=== PATIENT | male | born 1935 | race Caucasian/White ===

== ENCOUNTER 2017-02-18 15:09 | Inpatient (IN) | payer OTHER, BC ==
[~2017-02-18] VITALS: Ht 167.6 cm; Wt 76.9 kg
[~2017-02-18 15:09] MED LIST: ASCORBIC ACID500 M3 PO; ATENOLOL50 MG PO; ATORVASTATIN CA80 MG PO; BENICAR20 MG PO; CALCIUM 500 MG1 EACH PO; CARVEDILOL3.125 MG PO; CYANOCOBALAM1000 MCG PO; DIGOXIN125 MCG PO; FISH OIL 1,2001 EAC4 PO; FUROSEMIDE40 MG PO; JANUVIA100 MG PO; JANUVIA25 M1 PO; LITE COAT ASPI325 M1 PO; PERCOCET 5/31 TABLET PO; VITAMIN C; VITAMIN D31000 UNI2 PO; ZOFRAN4 MG PO
[2017-02-18 15:30] LABS: HEMATOCRIT 35.6 % (38.0-50.0); HEMOGLOBIN 12.1 G/DL (12.5-16.6); MCH 31.3 PG (29.0-34.0); PLATELET COUNT 305 K/uL (156-360); RBC DIS.WIDTH-CV 13.2 % (11.8-14.6); RBC DIS.WIDTH-SD 44.1 % (39-53); RED BLOOD COUNT 3.87 M/uL (4.00-5.50); WHITE BLOOD COUNT 23.1 K/uL (4.1-10.2)
[2017-02-18 15:39] LABS: CHLORIDE 102 mEq/L (99-109); POTASSIUM 5.3 mEq/L (3.7-5.4); SODIUM 136 mEq/L (136-147)
[2017-02-18 15:40] LABS: GLUCOSE 202 mg/dL (70-99)
[2017-02-18 15:44] LABS: GFR ESTIMATE (CALCULATED) 15 mL/min/ (58.99-99999)
[2017-02-18 15:45] LABS: UREA NITROGEN (BUN) 55 mg/dL (9-23)
[2017-02-18 15:50] LABS: TROP-I INTERPRETATION INDETERMINATE; TROPONIN-I 0.58 ng/mL (0.0-0.30)
[2017-02-18 16:50] LABS: INTER. NORMALIZED RATIO 1.1
[2017-02-18 16:53] LABS: PTT 25.6 SEC (25-37)
[2017-02-18] MEDS ORDERED: TRADJENTA5 MG PO (17:31)
[2017-02-18] MEDS ORDERED: MAGNESIUM OXID500 MG PO (17:32)
[2017-02-18] MEDS ORDERED: FENOFIBRATE160 M1 PO (17:32)
[2017-02-18] MEDS ORDERED: DIGOXIN125 MCG PO (17:32)
[2017-02-18 18:07] LABS: BASOPHIL (%) 0.2 % (0-1); EOSINOPHIL (%) 0 % (0-5); HEMATOCRIT 30.4 % (38.0-50.0); HEMOGLOBIN 10.4 G/DL (12.5-16.6); IMMATURE GRANULOCYTE (%) 0.6 % (0.0-0.7); LYMPHOCYTE (%) 3.5 % (15-42); LYMPHOCYTE COUNT 0.8 K/uL (1.0-2.8); MCH 31.3 PG (29.0-34.0); MCHC 34.2 G/DL (30.0-36.0); MCV 91.6 FL (86-99); MONOCYTE (%) 9.4 % (3-12); MONOCYTE COUNT 2.2 K/uL (0-0.8); NEUTROPHIL (%) 86.3 % (45-76); NEUTROPHIL COUNT 19.8 K/uL (1.8-6.4); PLATELET COUNT 262 K/uL (156-360); RBC DIS.WIDTH-SD 42.9 % (39-53); RED BLOOD COUNT 3.32 M/uL (4.00-5.50); WHITE BLOOD COUNT 22.9 K/uL (4.1-10.2)
[2017-02-18 18:15] LABS: ALBUMIN 4.2 g/dL (3.2-4.8); CHLORIDE 105 mEq/L (99-109); SODIUM 135 mEq/L (136-147)
[2017-02-18 18:17] LABS: GLUCOSE 184 mg/dL (70-99); TOTAL PROTEIN 7.6 g/dL (6.4-8.3)
[2017-02-18 18:19] LABS: TOTAL BILIRUBIN 0.6 mg/dL (0.0-1.0)
[2017-02-18 18:21] LABS: ALKALINE PHOSPHATASE 27 IU/L (3-129); GFR ESTIMATE (CALCULATED) 15 mL/min/ (58.99-99999)
[2017-02-18 18:22] LABS: UREA NITROGEN (BUN) 56 mg/dL (9-23)
[2017-02-18 18:23] LABS: AST (GOT) 23 IU/L (2-34)
[2017-02-18 18:24] LABS: ALT (GPT) 19 IU/L (3-49)
[2017-02-18 21:40] VITALS: BP 152/68
[2017-02-18 21:45] VITALS: BP 152/68
[2017-02-19] VITALS (7 sets, daily range): BP systolic 114–164; BP diastolic 55–79
[2017-02-19 00:59] LABS: TROP-I INTERPRETATION INDETERMINATE; TROPONIN-I 0.57 ng/mL (0.0-0.30)
[2017-02-19 04:58] LABS: APPEARANCE CLEAR ((CLEAR)); BILIRUBIN NEGATIVE; BLOOD NEGATIVE; COLOR YELLOW ((YELLOW)); GLUCOSE (STRIP) 50; KETONES NEGATIVE; LEUKOCYTES NEGATIVE; NITRITE NEGATIVE; PROTEIN (STRIP) 30; SPECIFIC GRAVITY 1.016 (1.000-1.030); UROBILINOGEN 0.2 MG/DL (0.2-1.0)
[2017-02-19 06:03] LABS: INTER. NORMALIZED RATIO 1.2
[2017-02-19 06:06] LABS: PTT 69.6 SEC (25-37)
[2017-02-19 08:15] LABS: BASOPHIL (%) 0.4 % (0-1); BASOPHIL COUNT 0.1 K/uL (0-0.1); EOSINOPHIL COUNT 0.2 K/uL (0-0.3); HEMATOCRIT 28.6 % (38.0-50.0); HEMOGLOBIN 9.6 G/DL (12.5-16.6); IMMATURE GRANULOCYTE (%) 0.8 % (0.0-0.7); LYMPHOCYTE (%) 9.4 % (15-42); LYMPHOCYTE COUNT 1.5 K/uL (1.0-2.8); MCH 31.5 PG (29.0-34.0); MCHC 33.6 G/DL (30.0-36.0); MCV 93.8 FL (86-99); MONOCYTE (%) 10.1 % (3-12); MONOCYTE COUNT 1.6 K/uL (0-0.8); NEUTROPHIL (%) 78.3 % (45-76); NEUTROPHIL COUNT 12.1 K/uL (1.8-6.4); PLATELET COUNT 237 K/uL (156-360); RBC DIS.WIDTH-CV 13.5 % (11.8-14.6); RBC DIS.WIDTH-SD 45.9 % (39-53); RED BLOOD COUNT 3.05 M/uL (4.00-5.50); WHITE BLOOD COUNT 15.5 K/uL (4.1-10.2)
[2017-02-19 08:42] LABS: TROP-I INTERPRETATION INDETERMINATE; TROPONIN-I 0.45 ng/mL (0.0-0.30)
[2017-02-19 08:47] LABS: ALBUMIN 3.6 G/DL (3.2-4.8); ALKALINE PHOSPHATASE 21 IU/L (3-129); ALT (GPT) 14 IU/L (3-49); AST (GOT) 19 IU/L (2-34); CHLORIDE 108 MEQ/L (99-109); CREATININE 3.8 MG/DL (0.6-1.3); GFR ESTIMATE (CALCULATED) 16 mL/min/ (58.99-99999); GLUCOSE 137 mg/dL (70-99); HDL CHOLESTEROL 28 MG/DL (Desirable>=40); LDL CHOLESTEROL 61 mg/dL (Desirable<100); NON-HDL CHOLESTEROL 90 mg/dL (Desirable<160); SODIUM 138 MEQ/L (136-147); TOTAL BILIRUBIN 0.6 MG/DL (0.0-1.0); TOTAL CHOLESTEROL 118 mg/dL (Desirable<200); TOTAL PROTEIN 6.6 G/DL (6.4-8.3); TRIGLYCERIDES 145 MG/DL (Normal: <150); UREA NITROGEN (BUN) 53 mg/dL (9-23)
[2017-02-19 08:49] LABS: POTASSIUM 4.5 MEQ/L (3.7-5.4)
[2017-02-19 09:32] LABS: HEMOGLOBIN A1c (GLYCOHEMOGLOB) 6.2 % (Below 5.7)
[2017-02-19 15:24] LABS: UR CREATININE CONCENTRATION 97.8 MG/DL
[2017-02-20 05:11] VITALS: BP 143/67
[2017-02-20 05:51] LABS: BASOPHIL (%) 0.7 % (0-1); BASOPHIL COUNT 0.1 K/uL (0-0.1); EOSINOPHIL (%) 4.9 % (0-5); EOSINOPHIL COUNT 0.5 K/uL (0-0.3); HEMATOCRIT 27.4 % (38.0-50.0); LYMPHOCYTE COUNT 2.1 K/uL (1.0-2.8); MCH 30.9 PG (29.0-34.0); MCHC 32.8 G/DL (30.0-36.0); MCV 94.2 FL (86-99); MONOCYTE (%) 12.7 % (3-12); MONOCYTE COUNT 1.3 K/uL (0-0.8); NEUTROPHIL (%) 60.7 % (45-76); NEUTROPHIL COUNT 6.4 K/uL (1.8-6.4); PLATELET COUNT 233 K/uL (156-360); RBC DIS.WIDTH-CV 13.5 % (11.8-14.6); RBC DIS.WIDTH-SD 46.7 % (39-53); RED BLOOD COUNT 2.91 M/uL (4.00-5.50); WHITE BLOOD COUNT 10.6 K/uL (4.1-10.2)
[2017-02-20 06:17] LABS: CHLORIDE 110 MEQ/L (99-109); CREATININE 3.2 MG/DL (0.6-1.3); GFR ESTIMATE (CALCULATED) 20 mL/min/ (58.99-99999); GLUCOSE 109 mg/dL (70-99); PHOSPHORUS 3.2 mg/dL (2.5-4.9); POTASSIUM 4.5 MEQ/L (3.7-5.4); SODIUM 138 MEQ/L (136-147); UREA NITROGEN (BUN) 48 mg/dL (9-23)
[2017-02-20 07:10] VITALS: BP 119/69
[2017-02-20 10:33] LABS: THYROTROPIN (TSH) 2.6 MIU/L (0.4-5.5)
[2017-02-20 11:18] VITALS: BP 151/69
[2017-02-20 14:29] VITALS: BP 155/74
[2017-02-20 21:32] VITALS: BP 135/61
[2017-02-21 00:43] VITALS: BP 134/63
[2017-02-21 02:52] VITALS: BP 129/63
[2017-02-21 08:13] VITALS: BP 127/65
[2017-02-21 11:52] VITALS: BP 132/63
== END 2017-02-21 13:11 | disposition home or self-care (01) | DRG 683 ==
LOC: EME 15:09 → EDOF 16:59 → 4EAST 16:59 → ENRESERV 17:48 → EDOF 21:06 → 4EAST 21:47
PROVIDERS: Emergency Medicine; Family Medicine; Internal Medicine Nephrology
DX: N17.9 Acute kidney failure, unspecified (principal); I25.10 Atherosclerotic heart disease of native coronary artery without angina pectoris; E11.22 Type 2 diabetes mellitus with diabetic chronic kidney disease; I50.1 Left ventricular failure, unspecified; E86.0 Dehydration; R11.2 Nausea with vomiting, unspecified; D72.829 Elevated white blood cell count, unspecified; I50.20 Unspecified systolic (congestive) heart failure; R13.10 Dysphagia, unspecified; F10.10 Alcohol abuse, uncomplicated; D63.1 Anemia in chronic kidney disease; E87.5 Hyperkalemia; F17.290 Nicotine dependence, other tobacco product, uncomplicated; I25.5 Ischemic cardiomyopathy; N18.4 Chronic kidney disease, stage 4 (severe); I13.0 Hypertensive heart and chronic kidney disease with heart failure and stage 1 through stage 4 chronic kidney disease, or unspecified chronic kidney disease; I25.2 Old myocardial infarction; Z91.19 Patient's noncompliance with other medical treatment and regimen; Z95.1 Presence of aortocoronary bypass graft; Z85.46 Personal history of malignant neoplasm of prostate; E78.5 Hyperlipidemia, unspecified; Z82.49 Family history of ischemic heart disease and other diseases of the circulatory system; R07.9 Chest pain, unspecified; R79.89 Other specified abnormal findings of blood chemistry
CPT/HCPCS: 71046; 74230; 76770; 80048; 80053; 80061; 80162; 81003; 82570; 82948; 83036; 83605; 83735; 83880; 84100; 84156; 84443; 84484; 85025; 85027; 85610; 85730; 92611 GN; 93005; 93306; 99281; 99285; J0696; J1644; J1815; J7030